=== PATIENT | female | born 1975 | race Caucasian/White ===

== ENCOUNTER → 2016-09-27 | Day surgery (SDC) | payer MEDICARE ==
[~2016-09-27] VITALS: Ht 160 cm; Wt 81.6 kg
[~2016-09-27] MED LIST: NORCO 10-325 T1 EACH PO
== END | disposition home or self-care (01) ==
LOC: OR 09:00
PROVIDERS: Orthopaedic Surgery
PROC: 3E0U33Z Introduction of Anti-inflammatory into Joints, Percutaneous Approach (ICD-10-PCS; 2016-09-27)
PROC: 0RSKXZZ Reposition Left Shoulder Joint, External Approach (ICD-10-PCS; principal; 2016-09-27 12:30)
DX: M75.92 Shoulder lesion, unspecified, left shoulder (principal); G40.909 Epilepsy, unspecified, not intractable, without status epilepticus; Z87.19 Personal history of other diseases of the digestive system; Z90.49 Acquired absence of other specified parts of digestive tract; Z88.0 Allergy status to penicillin; Z86.73 Personal history of transient ischemic attack (TIA), and cerebral infarction without residual deficits
CPT/HCPCS: 73020; 76000; 84703; J1885; J2250; J2274; J2795; J3010; J3301; J7030; J7120

== ENCOUNTER 2016-09-28 00:25 | Emergency (ER) | payer MEDICARE ==
[2016-09-28 03:47] LABS: HEMOGLOBIN 13.7 gm/dl (12.3-15.3); RED BLOOD COUNT 4.77 M/UL (4.00-5.10); WHITE BLOOD COUNT 14.4 K/UL (4.5-11.0)
[2016-09-28 04:08] LABS: BUN/CREATININE RATIO 16 (0-10)
== END 2016-09-28 06:15 | disposition home or self-care (01) ==
LOC: ER1 00:25
PROVIDERS: Family Medicine
DX: R11.2 Nausea with vomiting, unspecified (principal); Z90.49 Acquired absence of other specified parts of digestive tract; Z88.0 Allergy status to penicillin
CPT/HCPCS: 36415; 71010; 80053; 82550; 82553; 83874; 84484; 85025; 93005; 99284; J2405

== ENCOUNTER 2021-12-21 16:42 | Emergency (ER) | payer OTHER ==
[2021-12-21] MEDS ORDERED: OXCARBAZEPINE600 MG PO (18:07)
== END 2021-12-21 18:20 | disposition home or self-care (01) ==
LOC: ER1 16:42
DX: G40.909 Epilepsy, unspecified, not intractable, without status epilepticus (principal); Z76.0 Encounter for issue of repeat prescription; Z88.0 Allergy status to penicillin; Z88.5 Allergy status to narcotic agent
CPT/HCPCS: 99283

== ENCOUNTER 2022-01-28 19:55 | Emergency (ER) | payer OTHER ==
[~2022-01-28 19:55] MED LIST changes: +OXCARBAZEPINE600 MG PO
[2022-01-28 20:40] LABS: HEMOGLOBIN 14.1 gm/dl (12.3-15.3); RED BLOOD COUNT 4.78 M/UL (4.00-5.10); WHITE BLOOD COUNT 9.3 K/UL (4.5-11.0)
[2022-01-29 00:13] LABS: BUN/CREATININE RATIO 9 (0-10)
[2022-01-29] MEDS ORDERED: TRILEPTAL600 MG PO (01:40)
[2022-01-29] MEDS ORDERED: MECLIZINE HCL25 MG PO (01:40)
== END 2022-01-29 02:00 | disposition home or self-care (01) ==
LOC: ER1 19:55
PROVIDERS: Physician Assistant; Physician Assistant Medical
DX: R20.2 Paresthesia of skin (principal); R42 Dizziness and giddiness; E87.6 Hypokalemia; Z76.0 Encounter for issue of repeat prescription; Z86.73 Personal history of transient ischemic attack (TIA), and cerebral infarction without residual deficits; Z90.49 Acquired absence of other specified parts of digestive tract; Z88.0 Allergy status to penicillin; Z88.5 Allergy status to narcotic agent; Z79.899 Other long term (current) drug therapy
CPT/HCPCS: 70450; 71045; 80053; 81001; 82550; 82553; 84439; 84443; 84484; 84703; 85025; 93005; 96374; 99284; J2405